=== PATIENT | female | born 1950 | race Caucasian/White ===

== ENCOUNTER 2019-04-26 17:42 | Inpatient (IN) ==
[2019-04-26] MEDS ORDERED: ZOFRAN INJ 4 MG VIAL IVP PRN (17:58)
[2019-04-26] MEDS ORDERED: LEVAQUIN PREMIX IV 750 MG 750 MG/150 ML BAG IV SCH ×2 (18:00→20:00)
[2019-04-26 18:36] LABS: BASOPHILS % (AUTO) 0.3 % (0.2-1.0); HEMATOCRIT 33.4 % (36.0-47.0); HEMOGLOBIN 11.4 g/dL (12.0-16.0); LYMPHOCYTES # (AUTO) 0.8 X10^3/uL (1.3-2.9); LYMPHOCYTES % (AUTO) 6.6 % (21.0-51.0); MEAN CORPUSCULAR HEMOGLOBIN 30.1 pg (27.0-34.0); MEAN CORPUSCULAR VOLUME 88.5 fL (80.0-100.0); MEAN PLATELET VOLUME 7.7 fL (7.4-11.0); MONOCYTES # (AUTO) 0.9 x10^3/uL (0.3-0.8); MONOCYTES % (AUTO) 7.5 % (0.0-13.0); NEUTROPHILS # (AUTO) 9.9 x10^3/uL (2.2-4.8); NEUTROPHILS % (AUTO) 85.6 % (42.0-75.0); PLATELET COUNT 213 X10^3/uL (150.0-450.0); RED BLOOD COUNT 3.77 X10^6/uL (3.5-5.4); RED CELL DISTRIBUTION WIDTH 14.4 % (11.6-16.5); WHITE BLOOD COUNT 11.6 X10^3/uL (3.6-10.0)
[2019-04-26 18:40] LABS: BLOOD UREA NITROGEN 14 mg/dL (7-18); CALCIUM 8.7 mg/dL (8.5-10.1); CARBON DIOXIDE 29.5 mmol/L (21-32); CHLORIDE 97 mmol/L (98-107); COR NA(FOR HYPERGLY) 136 mmol/L (136-145); CREATININE 1.59 mg/dL (0.55-1.02); SODIUM 136 mmol/L (136-145); eGFR NON BLACK RACES 34 (>60)
[2019-04-26 18:44] LABS: ALANINE AMINOTRANSFERASE 44 Units/L (12-78); ALBUMIN 3.5 g/dL (3.4-5.0); ALKALINE PHOSPHATASE 104 Units/L (46-116); ASPARTATE AMINO TRANSFERASE 46 Units/L (15-37); TOTAL PROTEIN 7.4 g/dL (6.4-8.2)
--- NOTE | 2019-04-26 19:31 | CT ---
HISTORY: Left flank pain, hematuria Study: CT abdomen and pelvis without contrast Comparison: None Technique: Multiple axial images of the abdomen and pelvis were obtained from the lung bases to the pubic symphysis without the administration of IV contrast. Findings: Subsegmental atelectasis and/or scarring are seen within the visualized lungs. Punctate densities within the liver and spleen may reflect granulomatous change. The pancreas, adrenals, and right kidney are grossly unremarkable in appearance given limitations of this noncontrast exam. Mild dilatation of the left renal pelvis and proximal left ureter is noted. Left-sided perinephric stranding is demonstrated as well. These findings may be secondary to a recently passed stone however an infectious process/pyelonephritis cannot entirely be excluded. Scattered colonic diverticuli are noted and are most pronounced within the descending and sigmoid colon. Mesenteric fat stranding is seen adjacent to the descending colon and and may represent an extension of the above-mentioned left-sided perinephric stranding however diverticulitis may produce a similar appearance. Recommend clinical correlation and continued follow-up as indicated for further evaluation. Evaluation of the stomach, small bowel, and colon is limited without oral contrast. A tiny umbilical hernia containing fat is noted. The urinary bladder is not well distended which limits evaluation. Degenerative changes are seen within the visualized spine. IMPRESSION: Mild dilatation of the left renal pelvis and proximal left ureter with associated perinephric stranding as discussed above. Diverticulosis. See above discussion. Other findings as noted above. Reported By:
[2019-04-26 20:12] VITALS: BMI 24.0
[2019-04-26] MEDS ORDERED: KLOR-CON PO ONE (20:18)
[2019-04-26] MEDS ORDERED: NORCO 5/325 MG TAB PO PRN (20:22)
[2019-04-26] MEDS ORDERED: MORPHINE SULFATE INJ 2 MG INJ IVP PRN (20:22)
[2019-04-26] MEDS: NS 1000 ML 1,000 ML IV SCH (20:30)
[2019-04-26 20:46] LABS: BILIRUBIN,URINE NEGATIVE (NEGATIVE); BLOOD/HEMOGLOBIN,URINE 2+ (NEGATIVE); GLUCOSE, URINE NEGATIVE (NEGATIVE); KETONES,URINE NEGATIVE (NEGATIVE); LEUKOCYTE ESTERASE ,URINE 2+ (NEGATIVE); NITRITES,URINE NEGATIVE (NEGATIVE); PROTEIN,URINE 2+ (NEGATIVE); UROBILINOGEN,URINE NORMAL (NORMAL)
[2019-04-26 21:02] LABS: APPEARANCE,URINE HAZY (CLEAR); COLOR,URINE YELLOW (YELLOW)
[2019-04-26 21:03] LABS: BACTERIA,URINE 2+ /HPF (NEGATIVE); SQUAMOUS EPITHELIAL CELL,UR FEW /HPF (NEGATIVE)
[2019-04-26] MEDS: TYLENOL 325 MG TAB PO PRN (21:38)
[2019-04-26] MEDS ORDERED: MAGNESIUM SULFATE 1 GRAM/100 mL PREMIX 1 G/100 ML BAG IV ONE (21:52)
[2019-04-27 05:19] LABS: BASOPHILS % (AUTO) 0.2 % (0.2-1.0); HEMATOCRIT 28.7 % (36.0-47.0); HEMOGLOBIN 9.8 g/dL (12.0-16.0); LYMPHOCYTES # (AUTO) 0.9 X10^3/uL (1.3-2.9); LYMPHOCYTES % (AUTO) 8.2 % (21.0-51.0); MEAN CORPUSCULAR HEMOGLOBIN 30.3 pg (27.0-34.0); MEAN PLATELET VOLUME 8.4 fL (7.4-11.0); MONOCYTES # (AUTO) 1.2 x10^3/uL (0.3-0.8); MONOCYTES % (AUTO) 10.5 % (0.0-13.0); NEUTROPHILS # (AUTO) 9.3 x10^3/uL (2.2-4.8); NEUTROPHILS % (AUTO) 81.1 % (42.0-75.0); PLATELET COUNT 166 X10^3/uL (150.0-450.0); RED BLOOD COUNT 3.23 X10^6/uL (3.5-5.4); RED CELL DISTRIBUTION WIDTH 14.7 % (11.6-16.5); WHITE BLOOD COUNT 11.5 X10^3/uL (3.6-10.0)
[2019-04-27 05:35] LABS: ALBUMIN 2.7 g/dL (3.4-5.0); CALCIUM 8.1 mg/dL (8.5-10.1); CARBON DIOXIDE 28.2 mmol/L (21-32); COR CA(FOR HYPOALB) 9.1 mg/dL (8.5-10.1); CREATININE 1.3 mg/dL (0.55-1.02); TOTAL PROTEIN 6.3 g/dL (6.4-8.2)
[2019-04-27] MEDS: TYLENOL 325 MG TAB PO PRN ×3 (09:33→21:57)
[2019-04-27] MEDS: PROTONIX TAB 40 MG PO SCH (09:34)
[2019-04-27] MEDS: CARDIZEM CD 120 MG PO SCH (09:34)
[2019-04-27] MEDS: SYNTHROID 50 mcg TAB PO SCH (09:34)
[2019-04-27] MEDS: NS 1000 ML 1,000 ML IV SCH (09:35)
--- NOTE | 2019-04-27 18:54 | DR.H&P ---
H&P - History & Physical for Day of: H&P Date: 04/26/19 - Chief Complaint Chief Complaint: FEVER, LEFT ABD PAIN, N/V - History of Present Illness History of Present Illness: 68 WF DIRECT ADMIT FROM DR AGUILA OFFICE WITH FEVER OR 89 IN OFFICE LEFT FLANK AND LEFT ABDOMINAL PAIN WITH UTI + NITRITES. PT STATES SHE BEGAN WITH FEVER ON THURSDAY PRIOR TO ADMISSION. PT HAS PMH OF HTN, CAD, FRANCHESCA, HYPERLIPIDEMIA. PT WAS ADMITTED FOR TREATMENT OF ACUTE ILLNESS. - Past Medical History Past Medical History: Coronary Artery Disease, Hypertension, Anxiety, Hypothyroidism, GERD, Arthritis Additional Medical History: ANGIOPLASTY/STENTS - Past Surgical History Surgical History: Angioplasty/Stents, Hysterectomy, Tonsillectomy - Family History Family Medical History: Diabetes Mellitus, [place], Coronary Artery Disease, Heart Failure, Hypertension - Social History Alcohol Use: None Drug Use: None - Medications Home Medications: cefuroxime [From Ceftin] Allergy (Verified 04/26/19 20:21) erythromycin base Allergy (Verified 04/26/19 20:21) nitrofurantoin [From Macrobid] Allergy (Verified 04/26/19 20:21) Penicillins Allergy (Verified 04/26/19 20:21) Sulfa (Sulfonamide Antibiotics) Allergy (Verified 04/26/19 20:21) CONTINUE taking the following medications Calcium 500mg + D3 1 ea PO HS 04/26/19 [History] Evening Whiteside Oil 1,300 mg PO DAILY 04/26/19 [History] Green Lipped Mussel 500 Mg 500 mg PO DAILY 04/26/19 [History] High Potency D3 2000 Iu 1 ea PO DAILY 04/26/19 [History] Super Vitamin B-Complex 1 ea PO DAILY 04/26/19 [History] aspirin 81 mg PO HS 04/26/19 [History] cetirizine 10 mg PO HS 04/26/19 [History] diltiazem HCl 120 mg PO DAILY 04/26/19 [History] docusate sodium [Colace] 100 mg PO DAILY 04/26/19 [History] hydrochlorothiazide 12.5 mg PO DAILY 04/26/19 [History] levothyroxine 50 mcg PO DAILY 04/26/19 [History] metoprolol tartrate 6.25 mg PO DAILY 04/26/19 [History] mometasone 1 applic TOPICAL BID 04/26/19 [History] nitroglycerin [Nitrostat] 0.4 mg SUBLINGUAL PRN PRN 04/26/19 [History] pantoprazole 40 mg PO BID 04/26/19 [History] potassium chloride 10 meq PO DAILY 04/26/19 [History] rosuvastatin 10 mg PO HS 04/26/19 [History] - Review of Systems Constitutional: Fever, Chills, Weakness Eyes: No Symptoms Reported ENT: No Symptoms Reported Respiratory: No Symptoms Reported Cardiovascular: No Symptoms Reported Gastrointestinal: Nausea, Vomiting Genitourinary: Hematuria Musculoskeletal: Back Pain Skin: No Symptoms Reported Neurological: No Symptoms Reported - Physical Exam Vital Signs: Temperature 98.7 F Pulse Rate [Bilateral Brachial 54 ] Respiratory Rate 18 Blood Pressure [Right Arm] 109/48 Blood Pressure 161/72 O2 Sat by Pulse Oximetry 100 Oriented: Normal, Person Ear: Normal Nose: Normal Throat: Normal Respiratory: Clear Throughout Cardiovascular: Tachycardia. negative: Edema : Normal Auscultation: Bowel Sounds: Normal Palpation: Normal Tenderness: LLQ, Moderate, Other (LEFT CVA TENDERNESS) Musculoskeletal: Left, Back:Lumbar Psychiatric: Anxiety Affect: Anxious Speech Pattern: Clear, Appropriate - Assessment/Plan (1) Pyelonephritis Status: Acute Plan: ADMIT, ADMISSION LABS BC. UA AND UC. IV ATBX THERAPY, IV HYDRATION PAIN AND NAUSEA CONTROL. CT ABD PELVIS. VERIFY HOME MEDICATION (2) CAD (coronary artery disease) Status: Chronic (3) GERD (gastroesophageal reflux disease) Status: Chronic (4) Acute UTI Status: Acute - Allergies Allergies/Adverse Reactions: Allergies Allergy/AdvReac Type Severity Reaction Status Date / Time cefuroxime [From Ceftin] Allergy Verified 04/26/19 20:21 erythromycin base Allergy Verified 04/26/19 20:21 nitrofurantoin Allergy Verified 04/26/19 20:21 [From Macrobid] Penicillins Allergy Verified 04/26/19 20:21 Sulfa (Sulfonamide Allergy Verified 04/26/19 20:21 Antibiotics)
[2019-04-28] MEDS: NS 1000 ML 1,000 ML IV SCH ×4 (01:13→21:03)
[2019-04-28 05:27] LABS: BASOPHILS % (AUTO) 0.4 % (0.2-1.0); EOSINOPHILS % (AUTO) 0.5 % (0.9-2.9); HEMATOCRIT 25.8 % (36.0-47.0); HEMOGLOBIN 8.8 g/dL (12.0-16.0); LYMPHOCYTES # (AUTO) 1.2 X10^3/uL (1.3-2.9); LYMPHOCYTES % (AUTO) 16.2 % (21.0-51.0); MEAN CORPUSCULAR HEMOGLOBIN 30.1 pg (27.0-34.0); MEAN CORPUSCULAR HGB CONC 34.1 g/dL (33.0-35.0); MEAN CORPUSCULAR VOLUME 88.4 fL (80.0-100.0); MEAN PLATELET VOLUME 8.5 fL (7.4-11.0); MONOCYTES # (AUTO) 0.9 x10^3/uL (0.3-0.8); MONOCYTES % (AUTO) 12.9 % (0.0-13.0); PLATELET COUNT 139 X10^3/uL (150.0-450.0); RED BLOOD COUNT 2.92 X10^6/uL (3.5-5.4); RED CELL DISTRIBUTION WIDTH 14.6 % (11.6-16.5); WHITE BLOOD COUNT 7.1 X10^3/uL (3.6-10.0)
[2019-04-28 05:45] LABS: ALANINE AMINOTRANSFERASE 41 Units/L (12-78); ALBUMIN 2.5 g/dL (3.4-5.0); ALKALINE PHOSPHATASE 98 Units/L (46-116); ASPARTATE AMINO TRANSFERASE 38 Units/L (15-37); BLOOD UREA NITROGEN 11 mg/dL (7-18); CALCIUM 7.9 mg/dL (8.5-10.1); CARBON DIOXIDE 25.4 mmol/L (21-32); CHLORIDE 104 mmol/L (98-107); COR CA(FOR HYPOALB) 9.1 mg/dL (8.5-10.1); CREATININE 1.17 mg/dL (0.55-1.02); SODIUM 137 mmol/L (136-145); TOTAL PROTEIN 5.9 g/dL (6.4-8.2); eGFR NON BLACK RACES 49 (>60)
[2019-04-28] MEDS ORDERED: MICRO K EXTEN CAP 10 MEQ PO PRN (06:13)
[2019-04-28] MEDS ORDERED: K-RIDER 10 MEQ/NS 100 ML 10 MEQ/100 ML BAG IV PRN (06:13)
[2019-04-28] MEDS ORDERED: POTASSIUM CHL 60 MEQ/NS 0.45% 500 ML IV PRN (06:13)
[2019-04-28] MEDS ORDERED: POTASSIUM CHL 40 MEQ/NS 0.45% 500 ML IV PRN (06:13)
[2019-04-28] MEDS ORDERED: POTASSIUM CHLORIDE LIQ 20 MEQ UDC PO PRN (06:13)
[2019-04-28] MEDS ORDERED: KLOR-CON PO PRN (06:13)
[2019-04-28] MEDS ORDERED: ZyrTEC TAB 10 MG ONE (09:26)
[2019-04-28] MEDS: SYNTHROID 50 mcg TAB PO SCH (09:28)
[2019-04-28] MEDS: CARDIZEM CD 120 MG PO SCH (09:28)
[2019-04-28] MEDS: VIBRAMYCIN 100 MG in D5W 250 ML IV 250 ML IV SCH ×2 (09:28→21:02)
[2019-04-28] MEDS: PROTONIX TAB 40 MG PO SCH (09:28)
[2019-04-28] MEDS ORDERED: ZyrTEC TAB 10 MG PO SCH (10:00)
[2019-04-28 10:26] LABS: CHOL/HDL RATIO 3.3 (0.0-5.0); FREE T4 (FREE THYROXINE) 1.28 ng/dL (0.76-1.46); TSH (3RD GENERATION) 3.817 uIU/mL (0.358-3.74)
[2019-04-28] MEDS: ZyrTEC TAB 10 MG PO SCH (10:39)
[2019-04-28] MEDS: K-DUR TAB 20 MEQ PO PRN (10:48)
[2019-04-28 10:54] LABS: IRON 7 ug/dL (50-175)
[2019-04-28] MEDS ORDERED: PHARMACY CONSULT - DOSE _____ XX SCH (12:00)
[2019-04-28] MEDS ORDERED: NS 100 ML IV 100 ML with VENOFER 400 MG IV NR ×2 (14:00)
[2019-04-29] MEDS: NS 1000 ML 1,000 ML IV SCH (04:56)
[2019-04-29 05:27] LABS: BASOPHILS % (AUTO) 0.6 % (0.2-1.0); EOSINOPHILS # (AUTO) 0.1 x10^3/uL (0.0-0.2); EOSINOPHILS % (AUTO) 1.4 % (0.9-2.9); HEMATOCRIT 24.2 % (36.0-47.0); HEMOGLOBIN 8.4 g/dL (12.0-16.0); LYMPHOCYTES # (AUTO) 1.1 X10^3/uL (1.3-2.9); LYMPHOCYTES % (AUTO) 22.5 % (21.0-51.0); MEAN CORPUSCULAR HEMOGLOBIN 30.5 pg (27.0-34.0); MEAN CORPUSCULAR HGB CONC 34.7 g/dL (33.0-35.0); MEAN CORPUSCULAR VOLUME 87.9 fL (80.0-100.0); MEAN PLATELET VOLUME 8.5 fL (7.4-11.0); MONOCYTES # (AUTO) 0.5 x10^3/uL (0.3-0.8); MONOCYTES % (AUTO) 10.8 % (0.0-13.0); NEUTROPHILS # (AUTO) 3.1 x10^3/uL (2.2-4.8); NEUTROPHILS % (AUTO) 64.7 % (42.0-75.0); PLATELET COUNT 156 X10^3/uL (150.0-450.0); RED BLOOD COUNT 2.76 X10^6/uL (3.5-5.4); WHITE BLOOD COUNT 4.8 X10^3/uL (3.6-10.0)
[2019-04-29 05:36] LABS: ALANINE AMINOTRANSFERASE 136 Units/L (12-78); ALBUMIN 2.4 g/dL (3.4-5.0); ALKALINE PHOSPHATASE 167 Units/L (46-116); ASPARTATE AMINO TRANSFERASE 146 Units/L (15-37); BLOOD UREA NITROGEN 10 mg/dL (7-18); CARBON DIOXIDE 24.6 mmol/L (21-32); CHLORIDE 106 mmol/L (98-107); COR CA(FOR HYPOALB) 9.3 mg/dL (8.5-10.1); CREATININE 1.05 mg/dL (0.55-1.02); SODIUM 139 mmol/L (136-145); TOTAL PROTEIN 5.8 g/dL (6.4-8.2); eGFR NON BLACK RACES 55 (>60)
[2019-04-29] MEDS: K-DUR TAB 20 MEQ PO PRN (06:39)
[2019-04-29] MEDS: CARDIZEM CD 120 MG PO SCH (08:57)
[2019-04-29] MEDS: PROTONIX TAB 40 MG PO SCH (08:58)
[2019-04-29] MEDS: SYNTHROID 50 mcg TAB PO SCH (08:58)
[2019-04-29] MEDS: ZyrTEC TAB 10 MG PO SCH (08:58)
[2019-04-29] MEDS: VIBRAMYCIN 100 MG in D5W 250 ML IV 250 ML IV SCH (08:59)
[2019-04-29] MEDS ORDERED: LOVENOX INJ 30 MG SYR SC SCH (09:00)
[2019-04-29] MEDS ORDERED: TUMS PO PRN (12:20)
[2019-04-29 12:44] VITALS: BP 122/54
== END 2019-04-29 13:10 | disposition home or self-care (01) | DRG 690 ==
LOC: MED/SURG → OBSVTOIN 17:43
PROVIDERS: ADMIT Internal Medicine; ATTEND Internal Medicine
DX: D50.8 Other iron deficiency anemias; N39.0 Urinary tract infection, site not specified; F41.8 Other specified anxiety disorders; N10 Acute pyelonephritis; R31.9 Hematuria, unspecified; E78.2 Mixed hyperlipidemia; I10 Essential (primary) hypertension; R10.84 Generalized abdominal pain; E03.8 Other specified hypothyroidism; Z95.1 Presence of aortocoronary bypass graft; B96.29 Other Escherichia coli [E. coli] as the cause of diseases classified elsewhere; K21.9 Gastro-esophageal reflux disease without esophagitis; I25.10 Atherosclerotic heart disease of native coronary artery without angina pectoris
CPT/HCPCS: 36415; 74176; 80053; 80061; 81001; 82607; 82728; 82746; 83540; 83735; 84132; 84439; 84443; 84466; 85025; 87040; 87086; 87088; 87186; A4222; J1650; J1756; J1956; J2405; J3475; J3490; J7030; J7050; J7060

== ENCOUNTER 2020-02-25 22:54 | Inpatient (IN) ==
[2020-02-25] MEDS ORDERED: NS 1000 ML 1,000 ML ONE (23:49)
--- NOTE | 2020-02-26 00:22 | DR.GENAD ---
HPI - PCP Primary Care Physician: DAYANA OLSON - Complaint/Symptoms Chief Complaint Doctors Comments: Patient states of low blood pressure today with fever, chills, and xipoid chest pain getting progressively worst. States she was in the emergency room yesterday and was told she had a UTI, kidney stone and a mass on her liver and pancreas. She is complaining of SOB presently but denies chest pain. States she has been having LUQ pain worst until she vomited and the pain improved. States the left sided chest pain is worst of deep breathing. States the pain is 7 of 10. She denies tobacco, alcohol or drug usage. She is a patient of Dr. Burk. She has been having dysuria and decreased appetite. She denies problems with taste or smell. States she took her blood pressure pill today of Losartan 25mg 1/2 tablet daily. Chief Complaint:: PT AMBULATORY IN ED WITH C/O FEVER AND LOW BP. STATES SHE WAS YESTERDAY MORNING AND DX WITH KIDNEY STONES, UTI AND MASSES ON LIVER AND PANCREAS. PT STATES SHE STARTED RUNNING TEMP AND HAVING CHILLS YESTERDAY SOMETIME AFTER SHE GOT HOME FROM ER. C/O PAIN WHOLE LEFT SIDE, BACK AND NECK. - COVID-19 Coronavirus risk:travel/contact w/high risk person: No Has patient experienced Coronavirus symptoms: Yes Coronavirus symptoms experienced: Fever, Shortness of Breath - Nurses notes reviewed Nurses Notes Review: Yes - Source History Provided: Patient - Mode of Arrival Mode of Arrival: Ambulatory - Timing Onset of Chief Complaint: 02/24/20 Came on: Gradually - Duration Duration: Intermittent How lon Duration: Days - Location Location: LUQ and chest pain - Severity Severity: Moderate - Modifying Factors Worsens:: cough and deep breathe Improves:: nothing PMH - PMH Past Medical History: Yes Past Medical History: Coronary Artery Disease, Hypertension, Anxiety, Hypothyroidism, GERD, Arthritis Past Surgical History: Yes Surgical History: Hysterectomy, Tonsillectomy Past Surgical History Comment: HERNIA REPAIR - Family History History of Family Medical Conditions: Yes Family Medical History: Diabetes Mellitus, [place], Coronary Artery Disease, Heart Failure, Hypertension - Social History Does patient currently use any type of tobacco product: No Have you used tobacco products in the last 12 months: No Type of Tobacco Use: None Does any household member use tobacco: No Do you use any recreational Drugs:: No Lives With: Alone Lives Where: Home - Travel Risk Coronavirus risk:travel/contact w/high risk person: No Has patient experienced Coronavirus symptoms: Yes Coronavirus symptoms experienced: Fever - infectious screening In the last 2 months have you had wt loss of >10#?: NO Have you had fever, night sweats or hemotysis?: No Have you traveled outside the country in the last 6 months?: No Isolation: Droplet ROS - Review of Systems Constitutional: No Symptoms Reported, Fever, Weakness, Loss of Appetite Eyes: No Symptoms Reported. negative: See HPI, Eye Pain, Blurred Vision, Tearing, Discharge, Photophobia, Diplopia, Other ENTM: No Symptoms Reported Respiratoy: No Symptoms Reported, Non-Productive Cough, Short of Breath Cardiovascular: No Symptoms Reported, Chest Pain. negative: See HPI, Edema, Palpitations, Syncope, Cyanosis, Skin Mottling, Other Gastrointestinal/Abdominal: No Symptoms Reported, Abdominal Pain, Nausea Genitourinary: No Symptoms Reported, Dysuria Neurological: No Symptoms Reported, Weakness Musculoskeletal: No Symptoms Reported Integumentary: No Symptoms Reported Hematologic/Lymphatic: No Symptoms Reported Endocrine: No Symptoms Reported Psychiatric: No Symptoms Reported. negative: See HPI, Anxiety, Depression, Hallucinations, Excessive crying, Suicidal, Other PE - General Limitations: No Limitations General Appearance: Alert, In Distress (mild) - Head Head Exam: Normal Inspection, Atraumatic, Normocephalic - Eyes Eye exam: Normal Appearance, PERRL, EOMI. negative: Scleral Icterus, Conjun ctival Injection, Nystagmus, Miosis, Mydrasis, Periorbital Swelling, Periorbital Tenderness, Other - ENT ENT Exam: Normal Exam, Normal Oropharynx, Normal External Ear Exam, Mucous Membranes Moist, TM's Normal Bilaterally External Ear Exam: Normal External Inspection TM/Canal Exam: Bilateral Normal Nose Exam: Normal Nose Exam Mouth Exam: Normal Inspection. negative: Drooling, Trismus, Lip Swelling, Tongue Elevation, Tongue Swelling, Laceration, Other Throat Exam: Normal Inspection. negative: Tonsillar Erythema, Tonsillomegaly, T onsillar Exudate, R Peritonsillar Mass, L Peritonsillar Mass, Muffled Voice, Other - Neck Neck Exam: Normal Inspection, Full ROM, Trachea Midline. negative: Tenderness, Meningismus, Lymphadenopathy, Thyromegaly, Other - Chest Chest Inspection: Normal Inspection, Symmetric Chest Wall Rise - Respiratory Respiratory Exam: Normal Lung Sounds Bilat Respiratory Exam: Bilateral Clear to Auscultation - Cardiovascular Cardiovascular Exam: Regular Rate, Normal Rhythm, Normal Heart Sounds. negative: Bradycardia, Tachycardia, Irregular Rhythm, Systolic Murmur, Diastolic Murmur, Rubs, Gallop, Clicks, JVD, +S1, +S2, +S3, +S4, Other - Abdominal Exam Abdominal Exam: Normal Inspection, Normal Bowel Sounds, Soft, Tenderness (LUQ tenderness; epigastric tenderness), Guarding, Dimnished Bowel Sounds Abdominal Tenderness: LUQ, Epigastrium, Moderate - Extremities Extremities Exam: Normal Inspection, Full ROM, Normal Capillary Refill. negative: Tenderness, Edema, Joint Swelling, Calf Tenderness, Other - Back Back Exam: Normal Inspection, Full ROM. negative: Tenderness, (R) CVA Ten derness, (L) CVA Tenderness, Muscle Spasm, Paraspinal Tenderness, Vertebral Tenderness, Rashes, (R) Sciatic Notch Tenderness, (L) Sciatic Notch Tendern, (R) Straight Leg Raise, (L) Straight Leg Raise, Other - Neurologic Neurological Exam: Alert, Oriented X3, CN II-XII Intact, Normal Gait, Reflexes Normal - Psychiatric Psychiatric Exam: Normal Affect, Normal Mood - Skin Skin Exam: Warm, Dry, Intact, Normal Color. negative: Rash, Cyanosis, Diaphoresis, Erythema, Pallor, Mottled, Other - Vital Signs Vitals: Temperature 98.2 F Pulse Rate 66 Respiratory Rate 20 Blood Pressure [Right Arm] 132/66 Blood Pressure 105/51 O2 Sat by Pulse Oximetry 100 Course - Reevaluation 1st: Improved - Consultation Called: 03:58 Call Returned: 03:59 (Dr. Ch to admit) - Education/Counseling Education/Counseling: Patient, Family Educated On: Treatment, Diagnosis, Needs for Follow Up ROR - Labs Reviewed Laboratory Results Reviewed?: Yes (All labs and x-ray results reviewed and discussed with patient) Result Diagrams: 02/26/20 00:33 02/26/20 00:33 - XRAY XRAY Interpreted by: Radiologist (CT abdomen/pelvis: 2/1x1/5 x 2.4 cm mass in the head and uncinate process of the pancreas associated with pancreatic ductal dilation. It is highly suspicious for pancreatic cancer. 9 millimeter hypodoense lesion in the inferior right hepatic lobe concerning for possible metastatic disease. Further evaluation with contrast MRI recommended. 6.4 x 3.1 millimeter stone in the distal 3rd left ureter with moderated left sided- hydronephrosis.) - EKG Rate: 64 [place]: Normal Hypertrophy: LAE ST: Nonsp - Labs Reviewed Laboratory: WBC 12.4 X10^3/uL (3.6-10.0) H 02/26/20 00:33 RBC 3.08 X10^6/uL (3.5-5.4) L 02/26/20 00:33 Hgb 9.6 g/dL (12.0-16.0) L D 02/26/20 00:33 Hct 29.0 % (36.0-47.0) L 02/26/20 00:33 MCV 94.4 fL (80.0-100.0) 02/26/20 00:33 MCH 31.1 pg (27.0-34.0) 02/26/20 00:33 MCHC 33.0 g/dL (33.0-35.0) 02/26/20 00:33 RDW 13.6 % (11.6-16.5) 02/26/20 00:33 Plt Count 156 X10^3/uL (150.0-450.0) 02/26/20 00:33 MPV 8.0 fL (7.4-11.0) 02/26/20 00:33 Neut % (Auto) 84.5 % (42.0-75.0) H 02/26/20 00:33 Lymph % (Auto) 5.6 % (21.0-51.0) L 02/26/20 00:33 [place] % (Auto) 9.7 % (0.0-13.0) 02/26/20 00:33 Eos % (Auto) 0.1 % (0.9-2.9) L 02/26/20 00:33 Baso % (Auto) 0.1 % (0.2-1.0) L 02/26/20 00:33 Neut # (Auto) 10.4 x10^3/uL (2.2-4.8) H 02/26/20 00:33 Lymph # (Auto) 0.7 X10^3/uL (1.3-2.9) L 02/26/20 00:33 [place] # (Auto) 1.2 x10^3/uL (0.3-0.8) H 02/26/20 00:33 Eos # (Auto) 0.0 x10^3/uL (0.0-0.2) 02/26/20 00:33 Baso # (Auto) 0.0 X10^3/uL (0.0-0.1) 02/26/20 00:33 Absolute Nucleated RBC 0.0 /100WBC 02/26/20 00:33 PT 15.6 SECONDS (11.8-14.3) 02/26/20 00:33 INR Target Range - 02/26/20 00: INR 1.28 (0.8-1.3) 02/26/20 00:33 APTT 37.7 SECONDS (22.9-36.5) H 02/26/20 00:33 PTT Comment - 02/26/20 00:33 D-Dimer 1360 ng/mL (0-400) H* 02/26/20 00:33 Sodium 131 mmol/L (136-145) L 02/26/20 00:33 Corrected Sodium 132 mmol/L (136-145) L 02/26/20 00:33 Potassium 4.0 mmol/L (3.5-5.1) 02/26/20 00:33 Chloride 98 mmol/L (98-107) 02/26/20 00:33 Carbon Dioxide 24.5 mmol/L (21-32) 02/26/20 00:33 BUN 33 mg/dL (7-18) H 02/26/20 00:33 Creatinine 2.67 mg/dL (0.55-1.02) H 02/26/20 00:33 Est GFR (MDRD) Af Amer 23 (>60) L 02/26/20 00:33 Est GFR (MDRD) Non-Af 19 (>60) L 02/26/20 00:33 Glucose 150 mg/dL (65-99) H 02/26/20 00:33 Calcium 8.5 mg/dL (8.5-10.1) 02/26/20 00:33 Corrected Calcium 9.3 mg/dL (8.5-10.1) 02/26/20 00:33 Magnesium 1.3 mg/dL (1.7-2.9) L 02/26/20 00:33 Total Bilirubin 0.60 mg/dL (0.2-1.0) 02/26/20 00:33 AST 36 Units/L (15-37) 02/26/20 00:33 ALT 39 Units/L (12-78) 02/26/20 00:33 Alkaline Phosphatase 81 Units/L (46-116) 02/26/20 00:33 Creatine Kinase 51 Units/L (26-192) 02/26/20 00:33 CK-MB (CK-2) < 1.0 ng/mL (0-4.0) 02/26/20 00: CK/CKMB % Calc 2.0 % (<4) 02/26/20 00: Troponin I < 0.02 ng/mL (0-1.5) 02/26/20 00:33 Total Protein 6.5 g/dL (6.4-8.2) 02/26/20 00:33 Albumin 3.0 g/dL (3.4-5.0) L 02/26/20 00:33 Globulin 3.5 g/dL (2.5-4.5) 02/26/20 00:33 Albumin/Globulin Ratio 0.9 Ratio (1.1-2.1) L 02/26/20 00:33 Amylase 23 Units/L (25-115) L 02/26/20 00:33 Lipase 37 Units/L (73-393) L 02/26/20 00:33 Specimen Type Clean catch urine 02/26/20 01:50 Urine Color [place] (YELLOW) 02/26/20 01:50 Urine Appearance Cloudy (CLEAR) 02/26/20 01:50 Urine pH 5.0 (5.0 - 8.0) 02/26/20 01:50 Ur Specific [place] 1.015 (1.000-1.030) 02/26/20 01:50 Urine Protein 2+ (NEGATIVE) 02/26/20 01:50 Urine Glucose (UA) Negative (NEGATIVE) 02/26/20 01:50 Urine Ketones Negative (NEGATIVE) 02/26/20 01:50 Urine Occult Blood 3+ (NEGATIVE) 02/26/20 01:50 Urine Nitrite Negative (NEGATIVE) 02/26/20 01:50 Urine Bilirubin Negative (NEGATIVE) 02/26/20 01:50 Urine Urobilinogen Normal (NORMAL) 02/26/20 01:50 Ur Leukocyte Esterase 3+ (NEGATIVE) 02/26/20 01:50 Urine RBC Tntc /HPF (0-3) A 02/26/20 01:50 Urine WBC Tntc /HPF (0-5) A 02/26/20 01:50 Ur Squamous Epith Cells Few /HPF (NEGATIVE) 02/26/20 01:50 Urine Bacteria 3+ /HPF (NEGATIVE) 02/26/20 01:50 Ur Culture Indicated? Yes/culture set up 02/26/20 01:50 - XRAY Xray Findings: CXR: No acute cardiopulmonary disease. (YOU LEE) Opioid - Opioid Risk Tool Age (Alex box if 16-45): No History of Preadolescent Sexual Abuse: No Total: 0 Total Score Risk Category: Low Risk - Diagnosis Discharge Problem: Hypotension due to hypovolemia, Dehydration, Chest pain in adult, Mass of p ancreas, Left nephrolithiasis, History of anemia, Liver lesion, right lobe Urinary tract infection Qualifiers: Encounter type: initial encounter Chronic kidney disease (CKD) Qualifiers: Chronic kidney disease stage: stage 4 (severe) Qualified Code(s): N18.4 - Chronic kidney disease, stage 4 (severe) Abdominal pain Qualifiers: Abdominal location: left upper quadrant Qualified Code(s): R10.12 - Left upper quadrant pain - Discharge Plan Disposition: ADMITTED INPATIENT Condition: Stable - Follow ups/Referrals Follow ups/Referrals: DAYANA OLSON [Primary Care Provider] - 3 days - Instructions
[2020-02-26 00:49] LABS: BASOPHILS % (AUTO) 0.1 % (0.2-1.0); EOSINOPHILS % (AUTO) 0.1 % (0.9-2.9); HEMOGLOBIN 9.6 g/dL (12.0-16.0); LYMPHOCYTES # (AUTO) 0.7 X10^3/uL (1.3-2.9); LYMPHOCYTES % (AUTO) 5.6 % (21.0-51.0); MEAN CORPUSCULAR HEMOGLOBIN 31.1 pg (27.0-34.0); MEAN CORPUSCULAR VOLUME 94.4 fL (80.0-100.0); MONOCYTES # (AUTO) 1.2 x10^3/uL (0.3-0.8); MONOCYTES % (AUTO) 9.7 % (0.0-13.0); NEUTROPHILS # (AUTO) 10.4 x10^3/uL (2.2-4.8); NEUTROPHILS % (AUTO) 84.5 % (42.0-75.0); PLATELET COUNT 156 X10^3/uL (150.0-450.0); RED BLOOD COUNT 3.08 X10^6/uL (3.5-5.4); RED CELL DISTRIBUTION WIDTH 13.6 % (11.6-16.5); WHITE BLOOD COUNT 12.4 X10^3/uL (3.6-10.0)
[2020-02-26] MEDS ORDERED: NS 1000 ML 1,000 ML IV SCH ×2 (01:00→03:00)
[2020-02-26 01:28] LABS: BLOOD UREA NITROGEN 33 mg/dL (7-18); CALCIUM 8.5 mg/dL (8.5-10.1); CARBON DIOXIDE 24.5 mmol/L (21-32); CHLORIDE 98 mmol/L (98-107); COR NA(FOR HYPERGLY) 132 mmol/L (136-145); CREATININE 2.67 mg/dL (0.55-1.02); SODIUM 131 mmol/L (136-145); TROPONIN I < 0.02 ng/mL (0-1.5); eGFR NON BLACK RACES 19 (>60)
[2020-02-26 01:30] LABS: ALANINE AMINOTRANSFERASE 39 Units/L (12-78); ALKALINE PHOSPHATASE 81 Units/L (46-116); AMYLASE 23 Units/L (25-115); ASPARTATE AMINO TRANSFERASE 36 Units/L (15-37); COR CA(FOR HYPOALB) 9.3 mg/dL (8.5-10.1); CREATINE KINASE 51 Units/L (26-192); CREATINE KINASE MB < 1.0 ng/mL (0-4.0); LIPASE 37 Units/L (73-393); MAGNESIUM 1.3 mg/dL (1.7-2.9); TOTAL PROTEIN 6.5 g/dL (6.4-8.2)
[2020-02-26] MEDS ORDERED: NS 1000 ML 1,000 ML IV ONE ×2 (02:01→14:20)
--- NOTE | 2020-02-26 02:12 | RAD ---
HISTORYLOW BLOOD PRESSURESTUDYCHEST, 1 [id number]/13/2019FINDINGSThe trachea is midline. The cardiac silhouette is unremarkable . The lungs are clear without focal infiltrate or effusion. The bony thorax is unremarkable.IMPRESSIONNo acute cardiopulmonary disease.Electronically signed by: Nickie Rodriguez (Feb 26, 2020 02:10:44)
[2020-02-26 02:38] LABS: APPEARANCE,URINE CLOUDY (CLEAR); BILIRUBIN,URINE NEGATIVE (NEGATIVE); BLOOD/HEMOGLOBIN,URINE 3+ (NEGATIVE); COLOR,URINE AMBER (YELLOW); GLUCOSE, URINE NEGATIVE (NEGATIVE); KETONES,URINE NEGATIVE (NEGATIVE); LEUKOCYTE ESTERASE ,URINE 3+ (NEGATIVE); NITRITES,URINE NEGATIVE (NEGATIVE); PROTEIN,URINE 2+ (NEGATIVE); UROBILINOGEN,URINE NORMAL (NORMAL)
[2020-02-26 02:39] LABS: BACTERIA,URINE 3+ /HPF (NEGATIVE); RBC,URINE TNTC /HPF (0-3); SQUAMOUS EPITHELIAL CELL,UR FEW /HPF (NEGATIVE)
[2020-02-26] MEDS ORDERED: NS 1000 ML 1,000 ML ONE (02:52)
[2020-02-26] MEDS ORDERED: LEVAQUIN PREMIX IV 250 MG 250 MG/50 ML BAG IV ONE ×2 (03:21→03:40)
[2020-02-26] MEDS ORDERED: ZOFRAN INJ 4 MG VIAL IVP PRN (04:04)
[2020-02-26] MEDS ORDERED: PEPCID 20 MG IV PREMIX* 20 MG/50 ML BAG IV PRN (04:04)
[2020-02-26 06:12] LABS: BASOPHILS % (AUTO) 0.3 % (0.2-1.0); EOSINOPHILS % (AUTO) 0.4 % (0.9-2.9); HEMATOCRIT 29.2 % (36.0-47.0); HEMOGLOBIN 9.9 g/dL (12.0-16.0); LYMPHOCYTES # (AUTO) 0.4 X10^3/uL (1.3-2.9); LYMPHOCYTES % (AUTO) 4.8 % (21.0-51.0); MEAN CORPUSCULAR HEMOGLOBIN 31.9 pg (27.0-34.0); MEAN CORPUSCULAR HGB CONC 33.8 g/dL (33.0-35.0); MEAN CORPUSCULAR VOLUME 94.3 fL (80.0-100.0); MEAN PLATELET VOLUME 7.9 fL (7.4-11.0); MONOCYTES # (AUTO) 0.4 x10^3/uL (0.3-0.8); MONOCYTES % (AUTO) 4.3 % (0.0-13.0); NEUTROPHILS % (AUTO) 90.2 % (42.0-75.0); PLATELET COUNT 143 X10^3/uL (150.0-450.0); RED CELL DISTRIBUTION WIDTH 13.4 % (11.6-16.5); WHITE BLOOD COUNT 8.9 X10^3/uL (3.6-10.0)
[2020-02-26 06:20] LABS: CALCIUM 8.3 mg/dL (8.5-10.1); CARBON DIOXIDE 23.3 mmol/L (21-32); CREATININE 2.42 mg/dL (0.55-1.02)
[2020-02-26 06:23] LABS: BAND NEUTROPHILS % 12 % (0-10)
[2020-02-26 06:24] LABS: PLATELET MORPHOLOGY COMMENT NORMAL (NORMAL)
[2020-02-26] MEDS: NS 1000 ML 1,000 ML IV SCH ×3 (06:28→21:38)
[2020-02-26] MEDS ORDERED: MORPHINE SULFATE INJ 2 MG INJ ONE ×2 (08:04→14:44)
[2020-02-26] MEDS: MORPHINE SULFATE INJ 2 MG INJ IVP PRN ×3 (08:17→15:13)
[2020-02-26] MEDS ORDERED: LEVAQUIN PREMIX IV 250 MG 250 MG/50 ML BAG IV SCH (09:00)
[2020-02-26] MEDS ORDERED: TYGACIL 50 MG VIAL IV ONE ×2 (14:45→20:00)
[2020-02-26] MEDS ORDERED: MORPHINE SULFATE INJ 4 MG ONE (14:52)
[2020-02-26] MEDS ORDERED: MIRALAX POWDER (1 DOSE 17 G) PO SCH (15:15)
[2020-02-26] MEDS: MORPHINE SULFATE INJ 4 MG ONE ×2 (15:19→16:08)
[2020-02-26] MEDS ORDERED: NS 100 ML IV 100 ML IV ONE (15:53)
[2020-02-26] MEDS: TYGACIL 50 MG VIAL 100 MG in NS 100 ML IV 100 ML IV ONE ×3 (16:03→20:35)
[2020-02-26] MEDS ORDERED: TYLENOL 325 MG TAB PO ONE (16:37)
[2020-02-26] MEDS: TYLENOL 325 MG TAB PO PRN (16:40)
[2020-02-26] MEDS ORDERED: VOLTAREN 1 % GEL MULTI DOSE TUBE TOP PRN (19:07)
[2020-02-26] MEDS ORDERED: COLACE CAP 100 MG PO ONE (19:59)
[2020-02-26] MEDS ORDERED: EFFEXOR TAB 37.5 MG (BID DOSING) PO SCH (20:00)
[2020-02-26] MEDS ORDERED: NS 100 ML IV + SPIKE MINIBAG* 100 ML IV ONE (20:03)
[2020-02-26] MEDS: FLOMAX PO SCH (20:28)
[2020-02-26] MEDS: OSCAL+D or CALTRATE+D PO SCH ×2 (20:28→21:40)
[2020-02-26] MEDS: PROTONIX TAB 40 MG PO SCH (20:29)
[2020-02-26] MEDS: ASPIRIN 81 MG CHEWTAB PO SCH (20:29)
[2020-02-26] MEDS: COLACE CAP 100 MG PO SCH (20:29)
[2020-02-26] MEDS: CRESTOR TAB 10 MG PO SCH (20:29)
[2020-02-26] MEDS: NORCO 5/325 MG TAB PO PRN (20:32)
[2020-02-26 20:33] VITALS: BMI 24.5
[2020-02-26] MEDS: MIRALAX POWDER (1 DOSE 17 G) PO SCH (20:42)
[2020-02-27] MEDS ORDERED: TYGACIL 50 MG VIAL 50 MG in NS 100 ML IV 100 ML IV SCH (00:21)
[2020-02-27] MEDS ORDERED: BENADRYL INJ 50 MG VIAL IVP ONE (04:02)
[2020-02-27] MEDS ORDERED: BENADRYL INJ 50 MG VIAL ONE (04:03)
[2020-02-27] MEDS ORDERED: SYNTHROID 50 mcg TAB ONE (05:40)
[2020-02-27] MEDS: NS 1000 ML 1,000 ML IV SCH ×3 (05:40→22:28)
[2020-02-27 05:45] LABS: ALBUMIN 2.3 g/dL (3.4-5.0); BASOPHILS % (AUTO) 0.5 % (0.2-1.0); CALCIUM 7.5 mg/dL (8.5-10.1); CARBON DIOXIDE 21.2 mmol/L (21-32); COR CA(FOR HYPOALB) 8.9 mg/dL (8.5-10.1); CREATININE 1.99 mg/dL (0.55-1.02); EOSINOPHILS % (AUTO) 0.5 % (0.9-2.9); HEMATOCRIT 26.1 % (36.0-47.0); HEMOGLOBIN 8.8 g/dL (12.0-16.0); LYMPHOCYTES # (AUTO) 0.5 X10^3/uL (1.3-2.9); LYMPHOCYTES % (AUTO) 6.2 % (21.0-51.0); MEAN CORPUSCULAR HEMOGLOBIN 32.3 pg (27.0-34.0); MEAN CORPUSCULAR HGB CONC 33.9 g/dL (33.0-35.0); MEAN CORPUSCULAR VOLUME 95.3 fL (80.0-100.0); MEAN PLATELET VOLUME 9.2 fL (7.4-11.0); MONOCYTES # (AUTO) 0.7 x10^3/uL (0.3-0.8); MONOCYTES % (AUTO) 9.4 % (0.0-13.0); NEUTROPHILS # (AUTO) 6.1 x10^3/uL (2.2-4.8); NEUTROPHILS % (AUTO) 83.4 % (42.0-75.0); PLATELET COUNT 96 X10^3/uL (150.0-450.0); RED BLOOD COUNT 2.74 X10^6/uL (3.5-5.4); RED CELL DISTRIBUTION WIDTH 13.6 % (11.6-16.5); TOTAL PROTEIN 5.2 g/dL (6.4-8.2); WHITE BLOOD COUNT 7.4 X10^3/uL (3.6-10.0)
[2020-02-27] MEDS: MORPHINE SULFATE INJ 2 MG INJ IVP PRN ×2 (05:47→22:42)
[2020-02-27] MEDS: TYLENOL 325 MG TAB PO PRN ×2 (05:47→23:11)
[2020-02-27] MEDS ORDERED: SYNTHROID 50 mcg TAB PO SCH (07:00)
--- NOTE | 2020-02-27 07:18 | RAD ---
HISTORYRENAL STONESTUDYKUB x-ray abdomen one viewCOMPARISONCT 02/24/2020FINDINGSContrast is seen in the colon from prior CT study. Large distal left ureteral stone measures 1.0 cm, unchanged. Few phleboliths are seen in the pelvis, also. Possible tiny stones in the distal left ureter below the level of the larger stone are suggested.IMPRESSION1.0 cm distal left ureteral stone is unchanged.Electronically signed by: Elio Lenz (Feb 27, 2020 07:16:44)
[2020-02-27] MEDS ORDERED: PEPCID 20 MG IV PREMIX* 20 MG/50 ML BAG IV PRN (08:00)
[2020-02-27] MEDS: ASPIRIN 81 MG CHEWTAB PO SCH (08:48)
[2020-02-27] MEDS: PROTONIX TAB 40 MG PO SCH ×2 (08:48→20:43)
[2020-02-27] MEDS: NORCO 5/325 MG TAB PO PRN (08:50)
[2020-02-27] MEDS ORDERED: VITAMIN D3 25 mcg (1,000 UNITS) PO SCH (09:00)
[2020-02-27] MEDS ORDERED: FLOMAX PO SCH (09:00)
[2020-02-27] MEDS ORDERED: COLACE CAP 100 MG PO SCH (09:00)
[2020-02-27] MEDS ORDERED: EFFEXOR XR 37.5 MG CAP 24-HR PO SCH (09:00)
[2020-02-27] MEDS ORDERED: COZAAR PO SCH (09:00)
[2020-02-27] MEDS: VIBRAMYCIN 100 MG in D5W 250 ML IV 250 ML IV SCH ×2 (12:18→22:42)
[2020-02-27 16:34] VITALS: BP 117/56
--- NOTE | 2020-02-27 17:01 | CT ---
ABDOMEN/PELVIS W/O CONHISTORY: OBSTRUCTING LEFT RENAL STONEComparison:February 24, 2020Technique:Multiple non contrast axial images of the abdomen and pelvis were obtained from the lung bases to the pubic symphysis. Oral contrast was given . Dose reduction techniques including Automated Exposure Control (AEC) and adjustment of mA and kV were utlized.Findings:The sensitivity for focal lesion detection within the solid abdominal viscera is diminished without the use of IV contrast.The heart is normal in size. There is no pericardial effusion. New small bilateral pleural effusions and adjacent atelectasis. Findings are new from prior.Liver and spleen are normal in size, contour. No focal lesions. No ductal dilitation. Gallbladder is present. No calcified gallstones or gallbladder wall thickening. Patient's previously identified pancreatic head mass is not well seen on this examination secondary to lack of intravenous contrast. Adrenal glands are normal. Redemonstration of mild left-sided hydronephrosis secondary to 9 mm distal left ureteral stone on series 3, image 72.No bowel obstruction or inflammation. No abnormal appearing mesenteric or retroperitoneal lymph nodes. . No free fluid or fluid collections.The bladder is normal in appearance. Uterus appears to be absent. Moderate amount of free fluid in the pelvis which is new from prior no free fluid or abnormal pelvic lymph nodes.No aggressive osseous lesions.IMPRESSION:1. Redemonstration of obstructing 9 mm distal left ureter stone.2. New fluid in the pelvis. This may be reactive to patient's hydronephrosis.Electronically signed by: SANTA GRANT (Feb 27, 2020 16:58:57)
--- NOTE | 2020-02-27 19:24 | US ---
HISTORY:Abdominal painStudy: Right upper quadrant abdominal ultrasoundComparison: CT same dayTechnique: Multiple fountain scale and color flow Doppler images of the right upper quadrant were obtained.Findings:The liver is normal in echotexture and size. No focal intraparenchymal mass or intrahepatic biliary ductal dilatation is observed. There is hepatopetal flow in the portal vein. Gallbladder is contracted, limiting evaluation. No definite gallstones identified. The common bile duct measures 5 mm. No pericholecystic fluid or gallbladder wall thickening. No sonographic Scruggs's sign reported.The right kidney appears normal in size without focal parenchymal mass or nephrolithiasis. The right kidney measures 11 x 4 x 4.6 centimeters. No evidence of hydronephrosis. The visualized portions of the pancreas are unremarkable.IMPRESSION:1. Contracted gallbladder, limiting evaluation. No definite stones identified. No other sonographic abnormalities are seen.Electronically signed by: YANA SAM (Feb 27, 2020 19:23:26)
[2020-02-27] MEDS: FLOMAX PO SCH (20:42)
[2020-02-27] MEDS: COLACE CAP 100 MG PO SCH (20:43)
[2020-02-27] MEDS: CRESTOR TAB 10 MG PO SCH (20:43)
[2020-02-27] MEDS: OSCAL+D or CALTRATE+D PO SCH (20:43)
[2020-02-27] MEDS: MIRALAX POWDER (1 DOSE 17 G) PO SCH (22:27)
== END 2020-02-27 23:30 | disposition short-term general hospital (02) | DRG 872 ==
LOC: ER 22:54 → MED/SURG 22:54 → OBSVTOIN 02-26 04:08 → MED/SURG 02-26 05:43
PROVIDERS: ADMIT Obstetrics & Gynecology Obstetrics; ATTEND Internal Medicine
DX: N18.4 Chronic kidney disease, stage 4 (severe); F41.8 Other specified anxiety disorders; K21.9 Gastro-esophageal reflux disease without esophagitis; I25.10 Atherosclerotic heart disease of native coronary artery without angina pectoris; E86.1 Hypovolemia; E87.1 Hypo-osmolality and hyponatremia; N13.6 Pyonephrosis; E03.8 Other specified hypothyroidism; I95.89 Other hypotension; Z11.59 Encounter for screening for other viral diseases; A41.51 Sepsis due to Escherichia coli [E. coli]; E86.0 Dehydration; R07.89 Other chest pain; K86.89 Other specified diseases of pancreas; N17.8 Other acute kidney failure
CPT/HCPCS: 36415; 71010; 71045; 74000; 74018; 74176; 76705; 80048; 80053; 81001; 82150; 82378; 82550; 82553; 82607; 82728; 82746; 83540; 83605; 83690; 83735; 84466; 84484; 85025; 85378; 85610; 85730; 86301; 86316; 87040; 87077; 87086; 87088; 87186; 87635; 93005; 96365; 96367; 99284; A4216; A4222; J1200; J1956; J2270; J3243; J3490; J7030; J7050; J7060

== ENCOUNTER 2021-08-15 17:42 | Observation (INO) ==
--- NOTE | 2021-08-15 18:04 | DR.GENAD ---
HPI Time Seen Time Seen by Provider: 08/15/21 17:58 PCP Primary Care Physician: FAITH DODSON HPI Comment HPI Comment: PATIENT IS 70YR OLD FEMALE IN ER WITH HISTORY OF LOW HEMOGLOBIN LEVEL TESTED OUT PATIENT. DUSTIN FROM [place] WHERE LAB WAS DONE FOR HER TO COME TO ER FOR POSSIBLE BLOOD TRASFUSION. PATIENT IS WEAK AND DIZZY. Complaint/Symptoms Chief Complaint Doctors Comments: LOW HEMOGLOBIN LEVEL WITH DIZZINESS AND GENERALIZED WEAKNESS. Chief Complaint:: PT WAS SEEN IN [place] YESTERDAY AN WAS CALLED AND TOLD THAT HER HGB WAS 6.9 AND SHE NEEDED A BLOOD TRANSFUSION. PT DOES C/O DIZZINESS AND WEAKNESS. COVID-19 Coronavirus risk:travel/contact w/high risk person: No Has patient experienced Coronavirus symptoms: No Nurses notes reviewed Nurses Notes Review: Yes Source History Provided: Patient Mode of Arrival Mode of Arrival: Ambulatory Timing Onset of Chief Complaint: 08/15/21 Came on: Suddenly PMH PMH Past Medical History: Yes Past Medical History: Depression, GERD and Hypothyroidism Past Medical History Comment: PANCREATIC CA Past Surgical History: Yes Surgical History: Cholecystectomy, Hysterectomy and Tonsillectomy Past Surgical History Comment: WHIPPLE SURGERY FEBRUARY 2021, LUMPECTOMY LEFT BREAST Family History History of Family Medical Conditions: Yes Family Medical History: Diabetes Mellitus, Coronary Artery Disease and Hypertension Family Medical History Comment: CVA Social History Does patient currently use any type of tobacco product: No Have you used tobacco products in the last 12 months: No Type of Tobacco Use: None Does any household member use tobacco: No Alcohol Use: None Do you use any recreational Drugs:: No Lives With: Alone Lives Where: Home Travel Risk Coronavirus risk:travel/contact w/high risk person: No Has patient experienced Coronavirus symptoms: No Infectious screening In the last 2 months have you had wt loss of >10#?: NO Have you had fever, night sweats or hemotysis?: No Have you traveled outside the country in the last 6 months?: No Isolation: Standard ROS Review of Systems Constitutional: No Symptoms Reported and See HPI Eyes: No Symptoms Reported and See HPI ENTM: No Symptoms Reported and See HPI Respiratoy: No Symptoms Reported and See HPI Cardiovascular: No Symptoms Reported and See HPI Gastrointestinal/Abdominal: No Symptoms Reported and See HPI Genitourinary: No Symptoms Reported and See HPI Neurological: No Symptoms Reported and See HPI Musculoskeletal: No Symptoms Reported and See HPI Integumentary: No Symptoms Reported and See HPI Hematologic/Lymphatic: No Symptoms Reported and See HPI Endocrine: No Symptoms Reported and See HPI Psychiatric: No Symptoms Reported and See HPI All Other Systems: Reviewed and Negative PE Vital Signs Vitals: Temperature 98.2 F Pulse Rate [Right Brachial] 58 Pulse Rate 58 Respiratory Rate 18 Blood Pressure [Right Arm] 140/63 Blood Pressure 118/52 O2 Sat by Pulse Oximetry 100 General Limitations: No Limitations General Appearance: Alert and In No Apparent Distress Head Head Exam: Normal Inspection Eyes Eye exam: Normal Appearance ENT ENT Exam: Normal Exam External Ear Exam: Normal External Inspection TM/Canal Exam: Bilateral: Normal Nose Exam: Normal Nose Exam Mouth Exam: Normal Inspection Throat Exam: Normal Inspection Neck Neck Exam: Normal Inspection Chest Chest Inspection: Normal Inspection Respiratory Respiratory Exam: Normal Lung Sounds Bilat Respiratory Exam: Bilateral: Clear to Auscultation Cardiovascular Cardiovascular Exam: Regular Rate and Normal Rhythm Abdominal Exam Abdominal Exam: Normal Inspection, Normal Bowel Sounds and Soft Extremities Extremities Exam: Normal Inspection Back Back Exam: Normal Inspection Neurologic Neurological Exam: Alert and Oriented X3 Psychiatric Psychiatric Exam: Normal Affect and Normal Mood Skin Skin Exam: Warm, Dry, Intact and Normal Color ROR Labs Reviewed Result Diagrams: 08/16/21 04:00 08/16/21 04:00 Laboratory: WBC 3.0 X10^3/uL (3.6-10.0) L 08/15/21 18:37 RBC 2.47 X10^6/uL (3.5-5.4) L 08/15/21 18:37 Hgb 7.4 g/dL (12.0-16.0) L 08/15/21 18:37 Hct 22.2 % (36.0-47.0) L 08/15/21 18:37 MCV 90.2 fL (80.0-100.0) 08/15/21 18:37 MCH 29.8 pg (27.0-34.0) 08/15/21 18:37 MCHC 33.1 g/dL (33.0-35.0) 08/15/21 18:37 RDW 17.4 % (11.6-16.5) H 08/15/21 18:37 Plt Count 213 X10^3/uL (150.0-450.0) 08/15/21 18:37 MPV 8.4 fL (7.4-11.0) 08/15/21 18:37 Neut % (Auto) 65.5 % (42.0-75.0) 08/15/21 18:37 Lymph % (Auto) 14.2 % (21.0-51.0) L 08/15/21 18:37 Cottle % (Auto) 14.3 % (0.0-13.0) H 08/15/21 18:37 Eos % (Auto) 2.7 % (0.9-2.9) 08/15/21 18:37 Baso % (Auto) 3.3 % (0.2-1.0) H 08/15/21 18:37 Neut # (Auto) 1.9 x10^3/uL (2.2-4.8) L 08/15/21 18:37 Lymph # (Auto) 0.4 X10^3/uL (1.3-2.9) L 08/15/21 18:37 Cottle # (Auto) 0.4 x10^3/uL (0.3-0.8) 08/15/21 18:37 Eos # (Auto) 0.1 x10^3/uL (0.0-0.2) 08/15/21 18:37 Baso # (Auto) 0.1 X10^3/uL (0.0-0.1) 08/15/21 18:37 Absolute Nucleated RBC 0.1 /100WBC 08/15/21 18:37 Sodium 138 mmol/L (136-145) 08/15/21 18:37 Corrected Sodium TNP 08/15/21 18:37 Potassium 3.1 mmol/L (3.5-5.1) L 08/15/21 18:37 Chloride 104 mmol/L (98-107) 08/15/21 18:37 Carbon Dioxide 27.4 mmol/L (21-32) 08/15/21 18:37 BUN 15 mg/dL (7-18) 08/15/21 18:37 Creatinine 1.03 mg/dL (0.55-1.02) H 08/15/21 18:37 Est GFR (MDRD) Af Amer > 60 (>60) 08/15/21 18:37 Est GFR (MDRD) Non-Af 56 (>60) L 08/15/21 18:37 Glucose 81 mg/dL (65-99) 08/15/21 18:37 Calcium 8.0 mg/dL (8.5-10.1) L 08/15/21 18:37 Corrected Calcium 9.2 mg/dL (8.5-10.1) 08/15/21 18:37 Total Bilirubin 0.30 mg/dL (0.2-1.0) 08/15/21 18:37 AST 68 Units/L (15-37) H 08/15/21 18:37 ALT 73 Units/L (12-78) 08/15/21 18:37 Alkaline Phosphatase 147 Units/L (46-116) H 08/15/21 18:37 Total Protein 5.9 g/dL (6.4-8.2) L 08/15/21 18:37 Albumin 2.5 g/dL (3.4-5.0) L 08/15/21 18:37 Globulin 3.4 g/dL (2.5-4.5) 08/15/21 18:37 Albumin/Globulin Ratio 0.7 Ratio (1.1-2.1) L 08/15/21 18:37 SARS CoV-2 RNA Rapid [place] Negative (NEGATIVE) 08/15/21 19:55 Blood Type A POSITIVE 08/15/21 18:37 Antibody Screen Negative 08/15/21 18:37 Crossmatch See Detail 08/15/21 18:37 Opioid Opioid Risk Tool Age (Alex box if 16-45): No History of Preadolescent Sexual Abuse: No Total: 0 Total Score Risk Category: Low Risk Copyright: Beto CALVIN predicting aberrant behaviors Instructions Forms: Precautions for COVID19 [facility] Social Distancing
[2021-08-15 18:53] LABS: BASOPHILS # (AUTO) 0.1 X10^3/uL (0.0-0.1); BASOPHILS % (AUTO) 3.3 % (0.2-1.0); EOSINOPHILS # (AUTO) 0.1 x10^3/uL (0.0-0.2); EOSINOPHILS % (AUTO) 2.7 % (0.9-2.9); HEMATOCRIT 22.2 % (36.0-47.0); HEMOGLOBIN 7.4 g/dL (12.0-16.0); LYMPHOCYTES # (AUTO) 0.4 X10^3/uL (1.3-2.9); LYMPHOCYTES % (AUTO) 14.2 % (21.0-51.0); MEAN CORPUSCULAR HEMOGLOBIN 29.8 pg (27.0-34.0); MEAN CORPUSCULAR HGB CONC 33.1 g/dL (33.0-35.0); MEAN CORPUSCULAR VOLUME 90.2 fL (80.0-100.0); MEAN PLATELET VOLUME 8.4 fL (7.4-11.0); MONOCYTES # (AUTO) 0.4 x10^3/uL (0.3-0.8); MONOCYTES % (AUTO) 14.3 % (0.0-13.0); NEUTROPHILS # (AUTO) 1.9 x10^3/uL (2.2-4.8); NEUTROPHILS % (AUTO) 65.5 % (42.0-75.0); PLATELET COUNT 213 X10^3/uL (150.0-450.0); RED BLOOD COUNT 2.47 X10^6/uL (3.5-5.4); RED CELL DISTRIBUTION WIDTH 17.4 % (11.6-16.5)
[2021-08-15 19:01] LABS: ALANINE AMINOTRANSFERASE 73 Units/L (12-78); ALBUMIN 2.5 g/dL (3.4-5.0); ALKALINE PHOSPHATASE 147 Units/L (46-116); ASPARTATE AMINO TRANSFERASE 68 Units/L (15-37); BLOOD UREA NITROGEN 15 mg/dL (7-18); CARBON DIOXIDE 27.4 mmol/L (21-32); CHLORIDE 104 mmol/L (98-107); COR CA(FOR HYPOALB) 9.2 mg/dL (8.5-10.1); CREATININE 1.03 mg/dL (0.55-1.02); SODIUM 138 mmol/L (136-145); TOTAL PROTEIN 5.9 g/dL (6.4-8.2); eGFR NON BLACK RACES 56 (>60)
[2021-08-15] MEDS ORDERED: NORCO 5/325 MG TAB PO PRN (21:24)
[2021-08-15] MEDS ORDERED: NS 250 ML IV 250 ML IV ONE (21:36)
[2021-08-15 22:33] LABS: CREATINE KINASE 50 Units/L (26-192); CREATINE KINASE MB < 1.0 ng/mL (0-4.0)
[2021-08-16 05:09] LABS: BASOPHILS % (AUTO) 1.1 % (0.2-1.0); EOSINOPHILS # (AUTO) 0.1 x10^3/uL (0.0-0.2); EOSINOPHILS % (AUTO) 3.6 % (0.9-2.9); HEMATOCRIT 22.5 % (36.0-47.0); HEMOGLOBIN 7.5 g/dL (12.0-16.0); LYMPHOCYTES # (AUTO) 0.6 X10^3/uL (1.3-2.9); LYMPHOCYTES % (AUTO) 24.2 % (21.0-51.0); MEAN CORPUSCULAR HGB CONC 33.2 g/dL (33.0-35.0); MEAN CORPUSCULAR VOLUME 90.4 fL (80.0-100.0); MEAN PLATELET VOLUME 8.7 fL (7.4-11.0); MONOCYTES # (AUTO) 0.4 x10^3/uL (0.3-0.8); MONOCYTES % (AUTO) 17.6 % (0.0-13.0); NEUTROPHILS # (AUTO) 1.3 x10^3/uL (2.2-4.8); NEUTROPHILS % (AUTO) 53.5 % (42.0-75.0); PLATELET COUNT 195 X10^3/uL (150.0-450.0); RED BLOOD COUNT 2.49 X10^6/uL (3.5-5.4); RED CELL DISTRIBUTION WIDTH 16.4 % (11.6-16.5); WHITE BLOOD COUNT 2.4 X10^3/uL (3.6-10.0)
[2021-08-16 05:31] LABS: PLATELET MORPHOLOGY COMMENT NORMAL (NORMAL)
[2021-08-16 05:46] LABS: ALANINE AMINOTRANSFERASE 60 Units/L (12-78); ALBUMIN 2.1 g/dL (3.4-5.0); ALKALINE PHOSPHATASE 120 Units/L (46-116); ASPARTATE AMINO TRANSFERASE 57 Units/L (15-37); BLOOD UREA NITROGEN 13 mg/dL (7-18); CALCIUM 7.5 mg/dL (8.5-10.1); CARBON DIOXIDE 29.4 mmol/L (21-32); CHLORIDE 108 mmol/L (98-107); CHOL/HDL RATIO 1.6 (0.0-5.0); CHOLESTEROL 64 mg/dL (0-200); CREATINE KINASE 33 Units/L (26-192); CREATINE KINASE MB < 1.0 ng/mL (0-4.0); HDL CHOLESTEROL 40 mg/dL (40-60); MAGNESIUM 1.9 mg/dL (1.7-2.9); SODIUM 140 mmol/L (136-145); TRIGLYCERIDES 36 mg/dL (0-150); eGFR NON BLACK RACES > 60 (>60)
[2021-08-16] MEDS ORDERED: K-DUR TAB 20 MEQ PO PRN (05:58)
[2021-08-16] MEDS ORDERED: K-RIDER 10 MEQ/NS 100 ML 10 MEQ/100 ML BAG IV PRN (05:58)
[2021-08-16] MEDS ORDERED: POTASSIUM CHLORIDE LIQ 20 MEQ UDC PO PRN (05:58)
[2021-08-16] MEDS ORDERED: KLOR-CON PO PRN (05:58)
[2021-08-16] MEDS ORDERED: MICRO K EXTEN CAP 10 MEQ PO PRN (05:58)
[2021-08-16] MEDS ORDERED: NS 250 ML IV 250 ML IV ONE (06:17)
[2021-08-16] MEDS: MAGNESIUM SULFATE 1 GRAM/100 mL PREMIX 1 G/100 ML BAG IV PRN ×2 (06:35→08:30)
[2021-08-16 08:23] VITALS: BP 109/54
[2021-08-16 08:33] VITALS: BMI 18.3
[2021-08-16 09:48] LABS: CREATINE KINASE 33 Units/L (26-192); CREATINE KINASE MB < 1.0 ng/mL (0-4.0)
== END 2021-08-16 10:00 | disposition home or self-care (01) ==
LOC: MED/SURG 17:52 → ER 17:52 → MED/SURG 21:10
PROVIDERS: ADMIT Internal Medicine; ATTEND Internal Medicine